=== PATIENT | male | born 1950 | race Caucasian/White ===

== ENCOUNTER → 2021-02-16 | Outpatient (CLI) | payer MEDICARE ==
[~2021-02-16] MED LIST: ASPI-482 PO
--- NOTE | 2021-02-16 14:49 | RAD ---
EXAM: CHEST 2 VIEWS. HISTORY: Left chest pain. COMPARISON: 07/11/2013. FINDINGS: Frontal and lateral views of the chest are obtained. There are no confluent infiltrates. There is no pneumothorax or pleural effusion. The heart is not en larged. Surgical clips project in the right supraclavicular region. IMPRESSION: 1. No confluent infiltrates. Electronically signed by: Annette Parker MD (02/16/2021 2:47 PM) [id number]
== END ==
LOC: RAD 14:10
PROVIDERS: ATTEND Family Medicine
DX: M94.0 Chondrocostal junction syndrome [Tietze] (principal)
CPT/HCPCS: 71046

== ENCOUNTER → 2021-04-04 | Outpatient (CLI) | payer MEDICARE ==
[~2021-04-04] MED LIST changes: +REGADENOSON 0.4 MG/5 ML DISP.SYRIN. IV ONE
--- NOTE | 2021-04-04 10:39 | RAD ---
CT of the chest without contrast 04/04/2021 INDICATION: Costochondral junction syndrome/Tietze syndrome COMPARISON STUDY: Chest radiograph February 16, 2021 TECHNIQUE: Multidetector CT imaging of the chest was performed without contrast FINDINGS: Heart size is normal. No pericardial effusion is identified. No pathologically enlarged med iastinal adenopathy is appreciated. No pneumothorax, pleural effusion, or focal infiltrate is seen. L imited evaluation of the upper abdomen demonstrates a probable left renal cyst. No acute normalities of the upper abdomen are identified. No acute osseous changes are identified. Degenerative changes of the thoracic spine are noted. More severe degenerative changes of the cervical spine appear to be pr esent. No overt inflammatory changes involving the costochondral junctions are identified. No signifi cant sternal or manubrial lytic or sclerotic lesions are seen. Hypertrophic changes are noted at the articulation of the first ribs and manubrium, not unexpected finding in a patient of this age. IMPRESSION: No evidence of acute cardiopulmonary process is identified CT DOSING PQRS STATEMENT: One or more of the following individualized dose reduction techniques were utilized for this examinat ion: 1. Automated exposure control 2. Adjustment of the mA and/or kV according to patient size 3. Use of iterative reconstruction technique Electronically signed by: Mamadou Ayala MD (04/04/2021 10:37 AM) [id number]
--- NOTE | 2021-04-05 10:15 | RAD ---
MR#: [id number] Date of Study: 04/04/2021 Ordering Physician: JOHN RAMEY, Referring Physician: LASHELL PAUL Tech: EFRAIN Rios ARRT (Gina) (N) APPROVED REPORT Test Type: Pharmacological Stress Nurse/Tech: Ariella Rodriguez Test Indications: chest pain Cardiac History: Hypertension, High cholesterol Medications: See Electronic Medical Record Medical History: See Electronic Medical Record Resting Heart Rate: 52 bpm Resting Blood Pressure: 143/56mmHg Pretest Chest Pain: None Nurse/Tech Notes SR, NO ACUTE CHANGES Consent: The procedure was explained to the patient in lay terms. Informed consent was witnessed. Otoniel eout was entered into [email or web address]. History and Stress Test performed by EFRAIN Rios, ALONSO (R) (N) Pharm. Details Pharmacologic stress testing was performed using 0.4mg per 5ml of regadenoson given intravenously ove r 7-10 seconds. Stress Symptoms No chest pain or symptoms. POST EXERCISE Reason for Termination: Infusion complete Target HR: No Max HR: 93 bpm 73% of Maximum Predicted HR: 127 bpm Exercise duration: 6 min:sec, Stage Max Blood Pressure: 173/77mmHg Blood Pressure response to exercise: Normal blood pressure response during stress. Chest Pain: No. Arrhythmia: No. ST Change: No. INTERPRETATION Stress EKG Conclusion: The resting EKG shows a sinus bradycardia with mild nonspecific ST segment devendra nges. The stress EKG shows no significant changes from baseline. No EKG evidence of stress-induced ischemia. Imaging Protocol IMAGE PROTOCOL: Rest Tc-99m/stress Tc-99m 1 day Rest: Stress: Viability: Radiopharm.Tc99m [id number] Sestamibi Dose9.6mCi 30mCi Img Date 04/04/2021 04/04/2021 Inj-Img [id number]. 60min. Rest Admin Site:IV - Right AntecubitalAdministrator: EFRAIN Rios ARRT (Gina)(N) Stress Admin Site: IV - Right AntecubitalAdministrator: Joann Núñez, NMTCB, ARRT (R)(N) STRESS DATA End Diast. Vol.92.0mlAv. Heart Rate58.0bpm End Syst. Vol.26.0mlCO Index BSA0.0L/min Myocardial Anmh022.0gEject. Iijzkwin08.0% Stress Rates Pk. Fill Rate2.59EDV/secLVtime Pk. Fill 232.06msec Pk. Empty Rate3.80ESV/secLVtime Pk. Dbdwl026.72msec 07/10 Pk. Fill1.28EDV/sec Stress Scores Regional WT0.00Summed WT0.00 Regional WM0.00Summed WM1.00 LV Perfusion The stress scans show no significant defects. The rest scans show no significant defects. Nuclear imaging shows no reversible ischemia or infarct. Wall Motion Left ventricular systolic function is normal with no regional wall motion abnormalities and an ejecti on fraction of greater than 70%. LV Perf. Quant 17 Seg. SSS0.00 17 Seg. SRS0.00 17 Seg. SDS0.00 Stress Defect Extent (% LAD)0.00Rest Defect Extent (% LAD)0.00Rev. Defect Extent (% LAD)0.00 Stress Defect Extent (% LCX) 0.00Rest Defect Extent (% LCX)0.00Rev. Defect Extent (% LCX)0.00 Stress Defect Extent (% RCA)0.00Rest Defect Extent (% RCA)0.00Rev. Defect Extent (% RCA)0.00 Stress Defect Extent (% GOMEZ)0.00Rest Defect Extent (% GOMEZ)0.00Rev. Defect Extent (% GOMEZ)0.00 Conclusion 1. No EKG evidence of stress-induced ischemia. 2. Nuclear imaging shows no reversible ischemia or infarct. 3. Normal left ventricular systolic function with an ejection fraction of greater than 70%. 4. Low risk Lexiscan nuclear stress test. Signed by : Eugenio Scott MD Electronically Approved : 04/05/2021 10:15:24
== END ==
LOC: CT 07:36
PROVIDERS: ATTEND Family Medicine
DX: R07.89 Other chest pain (principal); M94.0 Chondrocostal junction syndrome [Tietze]
CPT/HCPCS: 71250; 78452; 93017; A9500; J2785

== ENCOUNTER → 2021-06-23 | Outpatient (CLI) | payer MEDICARE ==
[~2021-06-23] MED LIST changes: -REGADENOSON 0.4 MG/5 ML DISP.SYRIN. IV ONE
--- NOTE | 2021-06-23 15:59 | RAD ---
PQRS Compliance Statement: One or more of the following individualized dose reduction techniques were utilized for this examinat ion: 1. Automated exposure control 2. Adjustment of the mA and/or kV according to patient size 3. Use of iterative reconstruction technique CT MAXILLOFACIAL WITHOUT CONTRAST 06/23/2021 2:04 PM Indication: History of right-sided cancer in 2009. Swelling of the jaw. COMPARISON: None available. TECHNIQUE: Multiple axial CT images of the maxillofacial structures were obtained without intravenous contrast. Coronal and sagittal reformats are provided. FINDINGS: Orbits are normal in appearance. Globes are spherical and contour. No lens dislocation. Extraocular m uscles are intact. No intraconal or extraconal mass. Optic nerves are normal in appearance. Paranasal sinuses are well aerated. There is a right mastoid effusion. Middle ear cavities are patent. Temporo mandibular joints are well aligned. Post surgical changes are identified along the right face. There is minimal soft tissue thickening along the postsurgical changes which may be secondary to fibrosis. No definite nodular enhancement is identified. No pathologically enlarged cervical lymph nodes. Floor of mouth is otherwise normal. Oropharynx and hypopharynx appear intact. Lytic changes of the right body and ramus of the mandible measuring 2.8 x 1.4 cm (series 2, image 17) . IMPRESSION: Lytic changes along the right mandibular body and ramus are identified which may be associated with o steoradionecrosis versus tumor chronic infection. Comparison with prior imaging could be of benefit. There is mild expansion of the right masseter which could reflect inflammation. Postsurgical changes are identified along the right neck without definite pathologically enlarged cer vical lymph nodes. Electronically signed by: Teetee Velasquez MD (06/23/2021 3:56 PM) [facility]
== END ==
LOC: CT 13:46
PROVIDERS: ATTEND Physician Assistant
DX: R68.84 Jaw pain (principal)
CPT/HCPCS: 70486